=== PATIENT | female | born 1970 | race Caucasian/White ===

== ENCOUNTER 2023-12-31 12:41 | Emergency (ER) | payer SELFPAY ==
[~2023-12-31] VITALS: Ht 157.5 cm; Wt 56.7 kg
[2023-12-31 12:46] VITALS: BP 106/73; TEMP 98.6; O2SAT 100
[2023-12-31] MEDS ORDERED: KETOROLAC TROMETHAMINE INJ 30 MG/ML VIAL ONE (13:06)
[2023-12-31] MEDS: KETOROLAC TROMETHAMINE INJ 30 MG/ML VIAL IM ONE (13:12)
== END 2023-12-31 14:44 | disposition home or self-care (01) ==
LOC: ER 12:42
DX: M25.571 Pain in right ankle and joints of right foot (principal); E11.9 Type 2 diabetes mellitus without complications
CPT/HCPCS: 29515; 73610; 73630; 96372; 99284; J1885